=== PATIENT | female | born 1985 | race Two or more races ===

== ENCOUNTER 2021-02-17 13:15 | Inpatient (IN) | payer OTHER ==
[~2021-02-17] VITALS: Ht 152.4 cm; Wt 2.7 kg
[2021-02-28] MEDS ORDERED: PRENATAL TABLE1 EAC1 PO (00:15)
== END 2021-03-03 11:41 | disposition home or self-care (01) | DRG 788 ==
LOC: SURG-SUITE 02-27 22:38 → O/R 02-27 22:38 → OB/GYN 02-27 22:38 → LDR 02-27 22:38 → O/R 02-28 09:36 → OB/GYN 02-28 14:26 → SURG-SUITE 02-28 20:17 → OB/GYN 03-09 13:15
PROVIDERS: Obstetrics & Gynecology; ADMIT Obstetrics & Gynecology; ATTEND Obstetrics & Gynecology
PROC: 4A1HXFZ Monitoring of Products of Conception, Cardiac Rhythm, External Approach (ICD-10-PCS; 2021-02-28)
PROC: 10D00Z1 Extraction of Products of Conception, Low, Open Approach (ICD-10-PCS; principal; 2021-02-28 07:00)
DX: O62.1 Secondary uterine inertia (principal); O42.02 Full-term premature rupture of membranes, onset of labor within 24 hours of rupture; Z3A.38 38 weeks gestation of pregnancy; Z37.0 Single live birth; Z20.822 Contact with and (suspected) exposure to COVID-19

== ENCOUNTER 2021-02-17 16:13 | Outpatient (CLI) | payer OTHER | END 2021-02-17 16:53 | disposition home or self-care (01) | LOC: NST 16:13 | PROVIDERS: ATTEND Obstetrics & Gynecology | DX: Z34.83 Encounter for supervision of other normal pregnancy, third trimester (principal) ==

== ENCOUNTER 2024-07-28 16:49 | Outpatient (CLI) | payer OTHER ==
[~2024-07-28] VITALS: Ht 152.4 cm; Wt 81.6 kg
[2024-07-28 16:21] VITALS: BP 103/64
[~2024-07-28 16:49] MED LIST: PRENATAL TABLE1 EAC1 PO
[2024-07-28 19:48] VITALS: BP 110/70
[2024-07-28 20:42] VITALS: BP 110/70
== END 2024-07-28 20:42 | disposition home or self-care (01) ==
LOC: OBS/DEL 16:49
PROVIDERS: ATTEND Obstetrics & Gynecology
DX: O26.849 Uterine size-date discrepancy, unspecified trimester (principal); Z3A.32 32 weeks gestation of pregnancy

== ENCOUNTER 2024-09-05 08:30 | Inpatient (IN) | payer OTHER ==
[~2024-09-05] VITALS: Ht 152.4 cm; Wt 83.0 kg
[2024-09-13] MEDS ORDERED: KETOROLAC TROMETHAMINE 30 MG VIAL ONE ×2 (02:19→11:48)
[2024-09-13 07:52] VITALS: BP 111/75
[2024-09-13] MEDS ORDERED: CEFAZOLIN SODIUM 1,000 MG VIAL ONE (08:57)
[2024-09-13] MEDS ORDERED: CITRIC ACID/SODIUM CITRATE 30 ML BLIST.PACK PO ONE (08:58)
[2024-09-13] MEDS ORDERED: OXYTOCIN 10 UNITS/ML VIAL ONE (09:28)
[2024-09-13] MEDS ORDERED: ERYTHROMYCIN BASE OPHT 1GM EACH TUBE OP ONE (09:28)
[2024-09-13] MEDS ORDERED: RINGERS SOLUTION,LACTATED 1,000 ML IV SCH (11:00)
[2024-09-13] MEDS ORDERED: MORPHINE SULFATE 4 MG/ML CARTRIDGE IV PRN (11:00)
[2024-09-13] MEDS ORDERED: OXYTOCIN 1,000 ML IV ONE (11:00)
[2024-09-13] MEDS ORDERED: KETOROLAC TROMETHAMINE 30 MG VIAL IV ONE (11:40)
[2024-09-13] MEDS ORDERED: ONDANSETRON HCL 2 MG/ML VIAL IV SCH (12:00)
[2024-09-13] MEDS ORDERED: ACETAMINOPHEN 500 MG GEL..CAP PO SCH (12:00)
[2024-09-13] MEDS ORDERED: KETOROLAC TROMETHAMINE 30 MG VIAL IV SCH (12:00)
[2024-09-13] MEDS ORDERED: MORPHINE SULFATE 4 MG/ML VIAL IV ONE ×2 (12:10→12:40)
[2024-09-13 13:14] VITALS: BP 118/76
[2024-09-13] MEDS ORDERED: SIMETHICONE 125 MG CAPSULE PO SCH (17:00)
[2024-09-13] MEDS ORDERED: GABAPENTIN 300 MG CAPSULE PO SCH (17:00)
[2024-09-13 21:11] VITALS: BP 115/77
[2024-09-14] VITALS: BP 117/78
[2024-09-14 06:46] LABS: HEMOGLOBIN 9.8 g/dL (12.0-15.00); MEAN CELL VOLUME 85.9 fL (80.00-100.00); MEAN CORPUSCULAR HEMOGLOBIN 30.2 pg (27.00-32.0); MEAN CORPUSCULAR HGB CONC 35.1 g/dl (32.0-36.0); PLATELET COUNT 139 K/uL (150-450); RED BLOOD COUNT 3.25 M/uL (4.00-6.00); RED CELL DISTRIBUTION WIDTH 14.5 % (11.5-14.5)
[2024-09-14 08:00] VITALS: BP 132/72
[2024-09-14] MEDS ORDERED: KETOROLAC TROMETHAMINE 10 MG TABLET PO SCH (08:00)
[2024-09-14] MEDS ORDERED: OxyCODONE HCL 5 MG TABLET (ROXICODONE) PO PRN (08:00)
[2024-09-14] MEDS ORDERED: DOCUSATE SODIUM 100MG CAP PO SCH (09:00)
[2024-09-14 12:00] VITALS: BP 108/68
[2024-09-14 16:00] VITALS: BP 122/79
[2024-09-14 20:00] VITALS: BP 130/81
[2024-09-15 00:35] VITALS: BP 94/75
[2024-09-15 08:00] VITALS: BP 124/74
== END 2024-09-15 16:30 | disposition home or self-care (01) | DRG 788 ==
LOC: OB/GYN 09-13 06:24 → O/R 09-13 06:24 → LDR 09-13 08:30 → OB/GYN 09-13 11:06 → LDR 09-13 14:00 → OB/GYN 09-15 16:30
PROVIDERS: ADMIT Obstetrics & Gynecology; ATTEND Obstetrics & Gynecology
PROC: 4A1HXCZ Monitoring of Products of Conception, Cardiac Rate, External Approach (ICD-10-PCS; 2024-09-13)
PROC: 10D00Z1 Extraction of Products of Conception, Low, Open Approach (ICD-10-PCS; principal; 2024-09-13 14:00)
DX: O34.211 Maternal care for low transverse scar from previous cesarean delivery (principal); Z3A.39 39 weeks gestation of pregnancy; Z37.0 Single live birth